=== PATIENT | female | born 1970 | race Caucasian/White ===

== ENCOUNTER 2018-08-11 12:22 | Emergency (ER) | payer OTHER ==
[~2018-08-11] VITALS: Ht 162.6 cm; Wt 83.5 kg
[~2018-08-11 12:22] MED LIST: ALPR0.253 PO; ARIP30TA1 PO; PARO30TA22 PO
[2018-08-11 12:33] VITALS: BP 124/88
--- NOTE | 2018-08-11 12:42 | NUR ---
PT AMBULATED TO ED BED 4
--- NOTE | 2018-08-11 12:45 | NUR ---
C/O LEFT SIDED NUMBNESS/TINGLING, CHEST PAIN, NAUSEA/VOMITING X 3DAYS. BLE/BUE STRENGTH EVEN, NO FACIAL ASSYMETRY NOTED, CLEAR SPEECH, A&O X4.SKIN IS PINK/WARM/DRY; AAOX4 WITH EVEN AND STEADY GAIT; LUNGS CLEAR BL; HR EVEN AND REGULAR;VSS; PATIENT POSITIONED FOR COMFORT; HOB ELEVATED; BEDRAILS UP X1; BED DOWN. ER MD MADE AWARE OF PT STATUS. PT PLACED ON HEAD CHOPPER
--- NOTE | 2018-08-11 12:45 | NUR ---
MADE AWARE OF PT STATUS
--- NOTE | 2018-08-11 12:50 | NUR ---
LAB AT BEDSIDE
--- NOTE | 2018-08-11 12:55 | NUR ---
XRAY AT BEDSIDE
[2018-08-11 13:06] LABS: BASOPHILS # (AUTO) 0.1 K/uL (0.00-0.22); BASOPHILS % (AUTO) 1.4 % (0.0-2.0); EOSINOPHILS # (AUTO) 0.1 K/uL (0-0.4); EOSINOPHILS % (AUTO) 1.9 % (0.0-4.0); HEMATOCRIT 36.7 % (36-48); HEMOGLOBIN 11.8 g/dL (12.0-16.0); LYMPHOCYTES # (AUTO) 1.8 K/uL (2.5-16.5); LYMPHOCYTES % (AUTO) 30.6 % (20.5-51.1); MEAN CORPUSCULAR HEMOGLOBIN 27 pg (27-31); MEAN CORPUSCULAR HGB CONC 32 g/dL (33-37); MEAN CORPUSCULAR VOLUME 84.6 fL (80-94); MONOCYTES # (AUTO) 0.6 K/uL (0.8-1.0); MONOCYTES % (AUTO) 10.1 % (1.7-9.3); NEUTROPHILS # (AUTO) 3.3 K/uL (1.8-7.7); PLATELET COUNT (AUTO) 248 K/uL (140-450); RED BLOOD CELL COUNT(AUTO) 4.34 MIL/uL (4.20-5.40); RED CELL DISTRIBUTION WIDTH 14.2 % (11.6-13.7); WHITE BLOOD COUNT (AUTO) 5.8 K/uL (4.8-10.8)
[2018-08-11 13:08] LABS: ANION GAP 15.7 (8-16); CREATININE 2.9 mg/dL (0.6-1.3); POTASSIUM 4.7 mmol/L (3.5-5.1)
[2018-08-11 13:14] LABS: ALBUMIN 3.8 g/dL (3.4-5.0); TOTAL BILIRUBIN 0.3 mg/dL (0.0-1.0)
--- NOTE | 2018-08-11 14:49 | NUR ---
PT RESTING IN BED, NO NEW NEEDS AT THIS TIME
[2018-08-11] MEDS ORDERED: KETOROLAC 60 MG/2 ML VIAL IM ONE (15:45)
[2018-08-11 16:09] VITALS: BP 122/85
== END 2018-08-11 16:05 | disposition home or self-care (01) ==
LOC: MED 12:22
DX: R07.89 Other chest pain (principal); R20.0 Anesthesia of skin; M79.10 Myalgia, unspecified site; R11.2 Nausea with vomiting, unspecified; I12.9 Hypertensive chronic kidney disease with stage 1 through stage 4 chronic kidney disease, or unspecified chronic kidney disease; N18.4 Chronic kidney disease, stage 4 (severe); F41.9 Anxiety disorder, unspecified; F17.200 Nicotine dependence, unspecified, uncomplicated; Z88.0 Allergy status to penicillin; Z88.1 Allergy status to other antibiotic agents; Z79.899 Other long term (current) drug therapy
CPT/HCPCS: 36415; 71045; 80053; 84484; 85025; 93005; 96372; 99284; J1885; Q0092

== ENCOUNTER 2019-01-21 14:13 | Emergency (ER) | payer OTHER ==
[~2019-01-21] VITALS: Ht 162.6 cm; Wt 79.4 kg
[2019-01-21 14:34] VITALS: BP 118/74
--- NOTE | 2019-01-21 14:39 | NUR ---
URINE CUP HANDED TO PT FOR SAMPLE
--- NOTE | 2019-01-21 14:42 | NUR ---
C/O BURNING PRESSURE TYPE PAIN UPON VOIDING X 1 WK----DENIES HAMATURIA
--- NOTE | 2019-01-21 15:15 | NUR ---
PT AMB TO BED 4
[2019-01-21 16:12] VITALS: BP 112/80
--- NOTE | 2019-01-21 16:12 | NUR ---
Patient discharged with v/s stable. Written and verbal after care instructions given and explained. Patient alert, oriented and verbalized understanding of instructions. Ambulatory with steady gait. All questions addressed prior to discharge. ID band removed. Patient advised to follow up with PMD. Rx of PHENAZOPYRIDINE & KEFLEX given. Patient educated on indication of medication including possible reaction and side effects. Opportunity to ask questions provided and answered.
== END 2019-01-21 16:12 | disposition home or self-care (01) ==
LOC: MED 14:13
DX: N39.0 Urinary tract infection, site not specified (principal); K21.9 Gastro-esophageal reflux disease without esophagitis; I10 Essential (primary) hypertension; F20.9 Schizophrenia, unspecified; F41.9 Anxiety disorder, unspecified; F17.200 Nicotine dependence, unspecified, uncomplicated; Z88.0 Allergy status to penicillin; Z88.1 Allergy status to other antibiotic agents; Z79.899 Other long term (current) drug therapy
CPT/HCPCS: 99283

== ENCOUNTER 2019-03-03 14:06 | Emergency (ER) | payer OTHER ==
[~2019-03-03] VITALS: Ht 162.6 cm; Wt 74.8 kg
[2019-03-03 14:21] VITALS: BP 165/102
--- NOTE | 2019-03-03 14:33 | NUR ---
48/F C/O BILATERAL FLANK PAIN X 3 DAYS . HX: GERD, HTN, RENAL DISEASE, SCHIZOPRENIA, ANXIETY, BIPOLAR, GOUT. DENIES N/V/D; SKIN IS PINK/WARM/DRY; AAOX4 WITH EVEN AND STEADY GAIT; LUNGS CLEAR BL; HR EVEN AND REGULAR;PT DENIES ANY FEVER, CP, SOB, OR COUGH AT THIS TIME; PATIENT STATES PAIN OF 8/10 AT THIS TIME; PATIENT POSITIONED FOR COMFORT; HOB ELEVATED; BEDRAILS UP X1; BED DOWN. ER MD MADE AWARE OF PT STATUS.
[2019-03-03] MEDS ORDERED: KETOROLAC 60 MG/2 ML VIAL IM ONE (15:05)
[2019-03-03] MEDS ORDERED: MORPHINE SULFATE 4 MG/ML SYR IM ONE (15:05)
--- NOTE | 2019-03-03 15:24 | NUR ---
PT REFUSED MORPHINE INJECTION STATES SHE IS RECOVERING ADDICT AND DOES NOT TAKE NARCOTICS.
[2019-03-03 16:46] LABS: BARBITURATE, URINE NEG. ng/ml (NEG <=200); BENZODIAZEPINE, URINE NEG. ng/mL (NEG <=200); CANNABINOID, URINE NEG. ng/mL (NEG <=50); COCAINE, URINE NEG. ng/mL (NEG <=300); OPIATE, URINE NEG. ng/mL (NEG <=2000); PHENCYCLIDINE SCREEN,URINE NEG. ng/mL (NEG <=25)
[2019-03-03 16:47] LABS: APPEARANCE,URINE CLEAR (CLEAR); BILIRUBIN,URINE NEGATIVE (NEGATIVE); BLOOD, URINE NEGATIVE (NEGATIVE); COLOR,URINE YELLOW (YELLOW); LEUKOCYTE ESTERASE ,URINE 1+ (NEGATIVE); NITRITE, URINE NEGATIVE (NEGATIVE); PH,URINE 5.5 (5.0-9.0); UGLUCOSE NEGATIVE (NEGATIVE)
[2019-03-03 17:02] LABS: RBC,URINE NONE SEEN /HPF (0-5)
[2019-03-03 17:11] VITALS: BP 175/95
--- NOTE | 2019-03-06 15:54 | NUR ---
lab reported positive e.coli urine culture; rx cipro which is resistant notifed, pt called to come in for further treatment
== END 2019-03-03 17:11 | disposition home or self-care (01) ==
LOC: MED 14:06
DX: N39.0 Urinary tract infection, site not specified (principal); K21.9 Gastro-esophageal reflux disease without esophagitis; I10 Essential (primary) hypertension; F20.9 Schizophrenia, unspecified; F41.9 Anxiety disorder, unspecified; Z79.899 Other long term (current) drug therapy; Z88.0 Allergy status to penicillin; Z88.1 Allergy status to other antibiotic agents; Z87.448 Personal history of other diseases of urinary system
CPT/HCPCS: 74018; 80305; 81001; 81025; 87086; 96372; 99284; J1885; Q0092; 87186; J2270

== ENCOUNTER 2019-03-06 17:46 | Emergency (ER) | payer OTHER ==
[~2019-03-06] VITALS: Ht 162.6 cm; Wt 74.8 kg
[2019-03-06 17:52] VITALS: BP 151/98
[2019-03-06] MEDS ORDERED: cefTRIAXone 250 MG VIAL ONE (18:18)
[2019-03-06] MEDS ORDERED: LIDOCAINE MPF 1% 5 ML ONE (18:18)
[2019-03-06] MEDS ORDERED: cefTRIAXone 250 MG in LIDOCAINE MPF 1% 0.9 ML IM ONE (18:25)
--- NOTE | 2019-03-06 18:25 | NUR ---
call back for positive e.coli urine culture; seen by rx cipro---resistant e.coli will medicate with rocephine here and rx different med
[2019-03-06 18:48] VITALS: BP 154/98
--- NOTE | 2019-03-06 18:48 | NUR ---
Patient discharged with v/s stable. Written and verbal after care instructions given and explained. Patient alert, oriented and verbalized understanding of instructions. Ambulatory with steady gait. All questions addressed prior to discharge. ID band removed. Patient advised to follow up with PMD. Rx of CEFPODOXIME given. Patient educated on indication of medication including possible reaction and side effects. Opportunity to ask questions provided and answered. TO STOP CIPRO
== END 2019-03-06 18:50 | disposition home or self-care (01) ==
LOC: MED 17:46
DX: N30.90 Cystitis, unspecified without hematuria (principal)
CPT/HCPCS: 96372; 99283; J0696; J2001

== ENCOUNTER 2019-05-04 13:52 | Emergency (ER) | payer OTHER ==
[~2019-05-04] VITALS: Ht 162.6 cm; Wt 77.1 kg
[2019-05-04 14:00] VITALS: BP 147/98
--- NOTE | 2019-05-04 14:00 | NUR ---
48/F PRESENTS TO ED, C/O COUGH, CONGESTION, BODYACHES, X5 DAYS. TEMP 100.4, HR 130. PT AWAKE AND ALERT, SKIN NORMAL COLOR WARM AND DRY, RR EVEN AND UNLABORED. HX HTN, POLYCYSTIC DISEASE, ANEMIA, GOUT, SCHIZOPRENIA, DEPRESSION RX LABETALOL, BICARB, TRAZODONE, ULORIC, COLCHICINE, PEPCID, HYDROXYZINE, RISPERIDONE
--- NOTE | 2019-05-04 14:00 | NUR ---
PT AMBULATED TO CHAIR
[2019-05-04] MEDS ORDERED: ACETAMINOPHEN EXTRA STRENGTH 500 MG TAB PO ONE (14:25)
--- NOTE | 2019-05-04 14:49 | NUR ---
Patient discharged with v/s stable. Written and verbal after care instructions given and explained. Patient alert, oriented and verbalized understanding of instructions. Ambulatory with steady gait. All questions addressed prior to discharge. ID band removed. Patient advised to follow up with PMD. Rx of AUGMENTIN, PROMETHAZINE DM, IBUPROFEN, FLONASE given. Patient educated on indication of medication including possible reaction and side effects. Opportunity to ask questions provided and answered.
== END 2019-05-04 14:49 | disposition home or self-care (01) ==
LOC: MED 13:52
DX: J32.9 Chronic sinusitis, unspecified (principal); K21.9 Gastro-esophageal reflux disease without esophagitis; I10 Essential (primary) hypertension; F20.9 Schizophrenia, unspecified; F32.9 Major depressive disorder, single episode, unspecified; Z79.899 Other long term (current) drug therapy; Z88.0 Allergy status to penicillin; Z88.1 Allergy status to other antibiotic agents
CPT/HCPCS: 87804; 99283